=== PATIENT | male | born 1945 | race Caucasian/White ===

== ENCOUNTER 2019-09-21 15:53 | Outpatient (CLI) | payer MEDICARE, SELFPAY | END 2019-09-21 15:54 | disposition home or self-care (01) | LOC: CHSLAB 16:02 | PROVIDERS: Visit Provider Specialist | DX: C44.329 Squamous cell carcinoma of skin of other parts of face (principal); D22.5 Melanocytic nevi of trunk | CPT/HCPCS: 88305; 88342 ==

== ENCOUNTER 2021-03-20 11:34 | Outpatient (CLI) | payer MEDICARE, SELFPAY | END 2021-03-20 11:35 | disposition home or self-care (01) | PROVIDERS: Visit Provider Specialist | DX: C44.222 Squamous cell carcinoma of skin of right ear and external auricular canal (principal) | CPT/HCPCS: 88305 ==

== ENCOUNTER 2024-09-28 12:06 | Outpatient (CLI) | payer MEDICARE, SELFPAY ==
--- OUTSIDE RECORDS SUMMARY | 2024-09-28 13:17 | XMS_ITS | Clinical Summary ---
Author Organization [facility] Address [address] [place] [id number] Phone Care Team Providers Care Value Stream Manager Name Role Phone Grant Ortiz MD Primary Care Provider [phone] Allergies No known active allergies Medications losartan (COZAAR) 25 mg tablet Take 25 mg by mouth 2 times daily. Active atorvastatin (LIPITOR) 20 mg tablet Take 20 mg by mouth daily. Active sodium, potassium and magnesium sulfates (Suprep Bowel Prep Kit) 17.5-3.13-1.6 gram Recon Soln Take 354 mL by mouth see administration instructions. 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 Gender Identity Not on file Sexual Orientation Not on file Last Filed Vital Signs Vital Sign Reading Time Taken Comments Blood Pressure 118/75 11/01/2020 7:43 AM CDT Pulse 86 11/01/2020 7:43 AM CDT Temperature 36.3 C (97.4 F) 11/01/2020 7:28 AM CDT Respiratory Rate 16 11/01/2020 7:43 AM CDT Oxygen Saturation 98% 11/01/2020 7:43 AM CDT Inhaled Oxygen Concentration - - Weight 82.5 kg (181 lb 12.8 oz) 11/01/2020 6:25 AM CDT Height 185.4 cm (6' 1 ) 11/01/2020 6:25 AM CDT Body Mass Index 23.99 11/01/2020 6:25 AM CDT Plan of Treatment Health Maintenance Due Date Last Done Comments DTAP/TDAP/TD VACCINES (1 - Tdap) 09/23/1963 PNEUMOCOCCAL VACCINE 50+ YEA RS (1 of 1 - PCV) 1994 ZOSTER VACCINE (1 of 2) 1994 RSV VACCINE (60+ or ) (1 - 1-dose 75+ series) 09/23/2019 COLORECTAL SCREENING 11/02/2023 11/01/2020, 11/02/19 21 INFLUENZA VACCINE (#1) 2024 Procedures Procedure Name Priority Date/Time Associated Diagnosis Comments COLONOSCOPY REPORT 11/01/2020 7: 31 AM CDT from Last 3 Months or Most Recently Relevant to Health Maintenance Results * COLONOSCOPY REPORT (11/01/2020 7:31 AM CDT) Narrative Procedure Note Deven Nuno MD - 11/01/2020 7:30 AM CDT [facility] Endoscopy Patient Name: Ariel Colin Procedure Date: 11/01/2020 Date of : 1945 Admit Type: Outpatient Attending MD: Deven Nuno MD Procedure: Colonoscopy Indications: Screening in patient at increased risk: Colorectal cancer in paternal uncle and brother in his 70's. Providers: Deven Nuno MD Referring MD: Grant Ortiz MD Medicines: Propofol per Anesthesia Complications: No immediate complications. Procedure: Informed consent was obtained for the procedure, including moderate sedation after risks were discussed. Based on the pre-procedure assessment, including review of the patient's medical history, medications, allergies, and review of systems, the patient was deemed to be an appropriate candidate for sedation. A timeout was performed. Continuous ECG monitoring, pulse oximetry, blood pressure monitoring, and direct observation were performed. The Colonoscope was introduced through the anus and advanced to the terminal ileum, with identification of the appendiceal orifice and IC valve. The colonoscopy was performed without difficulty. The patient tolerated the procedure well. The quality of the bowel preparation was good. Estimated Blood Loss: Estimated blood loss: none. Findings: A 7 mm polyp was found in the hepatic flexure. The polyp was sessile. The polyp was removed with a cold snare. Resection and retrieval were complete. A 3 mm polyp was found in the descending colon. The polyp was sessile. The polyp was removed with a cold snare. Resection and retrieval were complete. Multiple small-mouthed diverticula were found from sigmoid to descending colon. The mucosa vascular pattern in the distal rectum was locally increased with multiple telangiectasias. Impression: - 2 small polyps. Resected and retrieved. - Relatively severe diverticulosis. - Radiation proctitis. Recommendation: - Await pathology results. Deven Nuno MD 11/01/2020 7:30:22 AM This report has been signed electronically. Number of Addenda: [address]; [place] [address] Deven Nuno MD GI PROCEDURE ORDERABLES Final Re sult from Last 3 Months or Most Recently Relevant to Health Maintenance Insurance [employer] PPO MCR Advance Directives For more information, please contact: [phone] * Full Code (Latest Code Status on File) Date Activated Date Inactivated Comments 11/01/2020 6:24 AM 11/01/2020 9:58 AM Care Teams Value Stream Manager Relationship Specialty Start Date End Date Grant Ortiz MD [address] [place] [address] PCP - General Rheumatology 12/21/18
--- OUTSIDE RECORDS SUMMARY | 2024-09-28 13:17 | XMS_ITS | Encounter Summary ---
Author Organization [facility] Address 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
--- OUTSIDE RECORDS SUMMARY | 2024-09-28 13:17 | XMS_ITS | Clinical Summary ---
Author Organization [facility] [employer] Address [address] [place] [address] Care Team Providers Care Hat Checker Name Role Phone Unavailable Primary Care Provider Unavailabl e Source Comments [facility],non-owned Affiliates and Associated Physician Practices is amultiple site organization consisting of ambulatory clinics and hospital sitesin [place], [place], [place] and [place]. This disclosure is being madepursuant to the Care Everywhere program and may not contain all information available regarding this patient. Last updated 18.[facility] [employer] Allergies No known active allergies Social History Tobacco Use Types Packs/Day Years Used Date Smoking Tobacco: Never Assessed Sex and Gender Information Value Date Recorded Sex Assigned at Not on file Legal Sex Male 9:52 AM CDT Gender Identity Not on file Sexual Orientation Not on file Plan of Treatment Health Maintenance Due Date Last Done Comments DTAP/TDAP/TD VACCINES (1 - Tdap) 09/23/1963 PNEUMOCOCCAL VACCINE 50+ (1 of 1 - PCV) 1994 ZOSTER VACCINE (1 of 2) 1994 Respiratory Syncytial Virus (RSV) Vaccine Pt: or over 60 yrs (1 - 1-dose 75+ series) 09/23/2019 COVID-19 VACCINE ( - 2023-2 5 season) 2024 DEPRESSION SCREENING 06/02/2024 INFLUENZA VACCINE (Season Ended) 2025 HEPATITIS B VACCINE Aged Out No longe r eligible based on patient's age to complete this topic HIB VACCINE Aged Out No longer eligi ble based on patient's age to complete this topic HPV VACCINE Aged Out No longer eligi ble based on patient's age to complete this topic MENINGOCOCCAL (Group B) VACC INE SHARED DECISION-MAKING Aged Out No longer eligibl e based on patient's age to complete this topic MENINGOCOCCAL GROUPS A/C/Y/W VACCINE Aged Out No longer eligible b ased on patient's age to complete this topic Insurance MEDICARE [facility] MEDICARE [facility] Advance Directives Documents on File Type Date Recorded Patient Web Site Specialist Expl anation Adv Directive/Living Will/POA 09/23/2016
== END 2024-09-28 12:07 | disposition home or self-care (01) ==
LOC: CHSLAB 12:07
PROVIDERS: PCP Specialist; Visit Provider Specialist
DX: C44.319 Basal cell carcinoma of skin of other parts of face (principal)
CPT/HCPCS: 88305

== ENCOUNTER 2025-05-31 11:00 | Outpatient (RCR) | payer MEDICARE, SELFPAY ==
[2025-03-02 15:49] VITALS: BP 135/83; PULSE 70; RESP 16; O2SAT 99; BMI 23.0
== END 2025-06-01 13:49 | disposition home or self-care (01) ==
PROVIDERS: Visit Provider Nuclear Medicine Nuclear Cardiology
DX: Z95.1 Presence of aortocoronary bypass graft (principal)
CPT/HCPCS: 93798